=== PATIENT | female | born 1975 | race Caucasian/White ===

== ENCOUNTER → 2020-12-10 | Outpatient (CLI) | payer BC ==
[~2020-12-10] MED LIST: ADIPEX-P37.5 MG PO; ASPIRIN CHEWABL81 MG PO; AZITHROMYCIN250 MG PO; CEFUROXIME500 MG PO; COLACE 100MG C100 MG PO; FLOMAX0.4 MG PO; IBUPROFEN600 MG PO; NEURONTIN 400400 MG PO; NORCO 7.5-3251 EACH PO; OMNICEF 300 MG300 MG PO; PERCOCET 5/325 T1 EA PO; TORADOL 10 MG T10 MG PO; VENTOLIN HFA 66.7 GM INH; VITAMIN B-121000 MCG PO; VITAMIN D1000 UNI1 PO
== END ==
LOC: KOH-I 13:46
DX: M54.2 Cervicalgia (principal)
CPT/HCPCS: 72040

== ENCOUNTER 2021-07-14 17:25 | Observation (INO) | payer BC, OTHER ==
[~2021-07-14] VITALS: Ht 160 cm; Wt 74.5 kg
[2021-07-14 17:54] LABS: HEMOGLOBIN 13.1 gm/dl (12.3-15.3); RED BLOOD COUNT 4.28 M/UL (4.00-5.10); WHITE BLOOD COUNT 10.4 K/UL (4.5-11.0)
[2021-07-14 18:12] LABS: BUN/CREATININE RATIO 22 (0-10)
[2021-07-15] MEDS ORDERED: ULTRAM50 MG PO (04:13)
[2021-07-15] MEDS ORDERED: ZANAFLEX 4 MG TA4 MG PO (04:13)
[2021-07-15] MEDS ORDERED: IBUPROFEN600 MG PO (04:14)
[2021-07-15] MEDS ORDERED: DOTTI1 EAC1 TD (04:15)
[2021-07-15 08:30] LABS: RED BLOOD COUNT 4.25 M/UL (4.00-5.10)
[2021-07-15 08:36] LABS: WHITE BLOOD COUNT 5.5 K/UL (4.5-11.0)
[2021-07-15 08:53] LABS: BUN/CREATININE RATIO 17 (0-10)
[2021-07-16] MEDS ORDERED: ZOFRAN ODT 4 MG4 MG GT (10:59)
[2021-07-16] MEDS ORDERED: HYDROCODON-ACE1 EAC4 PO (10:59)
== END 2021-07-16 17:36 | disposition home or self-care (01) ==
LOC: ER1 17:25 → CDU 20:37 → M/S 20:37
PROVIDERS: Physician Assistant; ADMIT Surgery
PROC: 0FT44ZZ Resection of Gallbladder, Percutaneous Endoscopic Approach (ICD-10-PCS; principal; 2021-07-16 15:30)
DX: K80.46 Calculus of bile duct with acute and chronic cholecystitis without obstruction (principal); Z20.822 Contact with and (suspected) exposure to COVID-19; M54.9 Dorsalgia, unspecified; G62.9 Polyneuropathy, unspecified; M19.90 Unspecified osteoarthritis, unspecified site; F17.290 Nicotine dependence, other tobacco product, uncomplicated; Z79.899 Other long term (current) drug therapy
CPT/HCPCS: 36415; 80048; 80053; 81001; 82150; 83690; 85025; 93005; 96374; 96375; 96376; 99285; G0378; J0690; J1100; J1170; J1885; J2001; J2250; J2270; J2405; J2704; J2710; J3010; Q9967; U0002

== ENCOUNTER → 2021-10-21 | Outpatient (CLI) | payer BC ==
[~2021-10-21] MED LIST changes: +DOTTI1 EAC1 TD; +HYDROCODON-ACE1 EAC4 PO; +ULTRAM50 MG PO; +ZANAFLEX 4 MG TA4 MG PO; +ZOFRAN ODT 4 MG4 MG GT
== END ==
LOC: EXRD 10-14 10:30
DX: Z13.820 Encounter for screening for osteoporosis (principal); M81.0 Age-related osteoporosis without current pathological fracture; N95.1 Menopausal and female climacteric states
CPT/HCPCS: 77080